=== PATIENT | male | born 1980 | race Caucasian/White ===

== ENCOUNTER 2020-12-04 15:38 | Observation (INO) ==
[2020-12-04] MEDS ORDERED: Ondansetron 4 MG/2 ML VIAL IVP PRN (18:38)
[2020-12-04] MEDS ORDERED: Naloxone 0.4 MG/ML INJ IVP PRN (18:38)
[2020-12-04] MEDS ORDERED: *HR* LORazepam 2 MG/ML VIAL IVP PRN (18:41)
[2020-12-04] MEDS: *HR* LORazepam 2 MG/ML VIAL IVP PRN ×2 (19:14→20:16)
[2020-12-04 19:23] LABS: Immature Granulocytes % 0.3 % (0-4); Mean Corpuscular Volume 92.6 fL (83.0-100.0); Red Cell Distribution Width 13.1 % (11.5-14.5)
[2020-12-04 19:25] LABS: Eosinophils % 0.3 %; Hematocrit 41.4 % (37.5-50.1); Hemoglobin 13.9 g/dL (12.9-16.9); Immature Platelets 10.5 % (1.1-6.1); Lymphocytes # 0.9 K/mcL (0.6-4.6); Lymphocytes % 27.8 %; Mean Corpuscular HGB Conc 33.6 g/dL (31.6-35.5); Mean Corpuscular Hemoglobin 31.1 pg (28.0-33.3); Mean Platelet Volume 10.8 fL (9.4-12.4); Monocytes # 0.3 K/mcL (0.0-1.3); Monocytes % 9.4 %; Neutrophils # 1.9 K/mcL (1.6-8.9); Red Blood Count 4.47 M/mcL (4.19-5.50); Segmented Neutrophils % 61.2 %; White Blood Count 3.1 K/mcL (4.3-11.1)
[2020-12-04 19:32] LABS: INR 1.1; Prothrombin Time 12.9 Seconds (9.4-12.1)
[2020-12-04 19:44] LABS: Alanine Aminotransferase 40 Units/L (7-52); Albumin 3.9 g/dL (3.5-5.7); Albumin/Globulin Ratio 1.4 (1.1-2.2); Alkaline Phosphatase 87 Units/L (34-104); Amylase 31 Units/L (29-103); Aspartate Amino Transferase 88 Units/L (13-39); BUN/Creatinine Ratio 6 (6-26); Bilirubin,Total 0.9 mg/dL (0.3-1.0); Blood Urea Nitrogen 4 mg/dL (6-20); Carbon Dioxide 28 mEq/L (23-29); Chloride 100 mEq/L (98-107); Ethanol 101 mg/dL (Less than 10); Globulin 2.8 g/dL (2.4-3.5); Glucose 101 mg/dL (70-105); Lipase 73 Units/L (11-82); Magnesium 1.6 mg/dL (1.6-2.6); Osmolality,Calculated 281 (280-300); Phosphorous 2.6 mg/dL (2.7-4.5); Potassium 3.3 mEq/L (3.5-5.1); Sodium 137 mEq/L (136-145); Total Protein 6.7 g/dL (6.4-8.9); eGFR For African Americans > 60 (> 60); eGFR For Non-African Americans > 60 (> 60)
[2020-12-04] MEDS: carvediloL 6.25 MG TABLET PO SCH (20:15)
[2020-12-04 20:44] LABS: Large Platelets Present (Not Present); Platelet Count 55 K/mcL (140-400); Platelet Estimate Decreased (Normal)
[2020-12-04] MEDS: Thiamine (B-1) 200 MG in 0.9 % Sodium Chloride 50 ML IVPB SCH (22:19)
[2020-12-05] MEDS: *HR* LORazepam 2 MG/ML VIAL IVP PRN ×6 (05:56→21:05)
[2020-12-05] MEDS: carvediloL 6.25 MG TABLET PO SCH (09:11)
[2020-12-05] MEDS: Thiamine (B-1) 200 MG in 0.9 % Sodium Chloride 50 ML IVPB SCH (14:42)
[2020-12-06] MEDS: Thiamine (B-1) 200 MG in 0.9 % Sodium Chloride 50 ML IVPB SCH (10:17)
[2020-12-06] MEDS: *HR* LORazepam 2 MG/ML VIAL IVP PRN (10:24)
[2020-12-06 11:44] VITALS: O2SAT 93
[2020-12-06 12:44] LABS: BUN/Creatinine Ratio 9 (6-26); Blood Urea Nitrogen 7 mg/dL (6-20); Calcium 9.7 mg/dL (8.6-10.3); Carbon Dioxide 27 mEq/L (23-29); Chloride 102 mEq/L (98-107); Glucose 111 mg/dL (70-105); Magnesium 2.1 mg/dL (1.6-2.6); Osmolality,Calculated 281 (280-300); Potassium 3.3 mEq/L (3.5-5.1); Sodium 136 mEq/L (136-145); eGFR For African Americans > 60 (> 60); eGFR For Non-African Americans > 60 (> 60)
[2020-12-06 14:04] LABS: Immature Granulocytes % 0.3 % (0-4)
[2020-12-06 14:06] LABS: Basophils % 0.6 %; Eosinophils # 0.1 K/mcL (0.0-0.6); Eosinophils % 1.7 %; Hematocrit 44.3 % (37.5-50.1); Immature Platelets 11.9 % (1.1-6.1); Lymphocytes # 0.8 K/mcL (0.6-4.6); Lymphocytes % 22.9 %; Mean Corpuscular HGB Conc 33.9 g/dL (31.6-35.5); Mean Corpuscular Hemoglobin 31.9 pg (28.0-33.3); Mean Corpuscular Volume 94.3 fL (83.0-100.0); Mean Platelet Volume 11.3 fL (9.4-12.4); Monocytes # 0.3 K/mcL (0.0-1.3); Monocytes % 8.8 %; Neutrophils # 2.4 K/mcL (1.6-8.9); Red Cell Distribution Width 13.2 % (11.5-14.5); Segmented Neutrophils % 65.7 %; White Blood Count 3.6 K/mcL (4.3-11.1)
[2020-12-06 14:07] LABS: Platelet Count 57 K/mcL (140-400)
[2020-12-06 16:25] VITALS: BP 131/89; PULSE 97; TEMP 98.5
== END 2020-12-06 18:10 | disposition home or self-care (01) ==
LOC: 2NENU → SUATTDRO 18:41
PROVIDERS: ADMIT Internal Medicine; ATTEND Internal Medicine

== ENCOUNTER 2020-12-08 05:04 | Inpatient (IN) ==
[2020-12-08 06:34] LABS: Amphetamine Screen,Urine Negative ng/mL (Cutoff=1000); Barbiturate Screen,Urine Negative ng/mL (Cutoff=200)
[2020-12-08 06:35] LABS: Benzodiazepines Screen,Urine Negative ng/mL (Cutoff=200); Cannabinoid Screen,Urine Negative ng/mL (Cutoff = 50); Cocaine Screen,Urine Negative ng/mL (Cutoff= 300); Opiate Screen,Urine Negative ng/mL (Cutoff=300); Phencyclidine Screen,Urine Negative ng/mL (Cutoff=25)
[2020-12-08] MEDS ORDERED: *HR* HYDROcodone/Acet 5/325 mg TABLET PO PRN (07:23)
[2020-12-08] MEDS ORDERED: Ondansetron 4 MG/2 ML VIAL IVP PRN (07:23)
[2020-12-08] MEDS ORDERED: Naloxone 0.4 MG/ML INJ IVP PRN (07:23)
[2020-12-08] MEDS ORDERED: *HR* LORazepam 2 MG/ML VIAL IVP PRN ×2 (07:25→07:27)
[2020-12-08 10:07] LABS: Basophils # 0.1 K/mcL (0.0-0.2); Basophils % 0.9 %; Eosinophils # 0.1 K/mcL (0.0-0.6); Eosinophils % 1.4 %; Hematocrit 44.9 % (37.5-50.1); Hemoglobin 15.2 g/dL (12.9-16.9); Immature Granulocytes % 0.2 % (0-4); Immature Platelets 4.1 % (1.1-6.1); Lymphocytes % 34.7 %; Mean Corpuscular HGB Conc 33.9 g/dL (31.6-35.5); Mean Corpuscular Hemoglobin 31.5 pg (28.0-33.3); Mean Corpuscular Volume 93.2 fL (83.0-100.0); Mean Platelet Volume 9.1 fL (9.4-12.4); Monocytes # 0.8 K/mcL (0.0-1.3); Monocytes % 13.7 %; Neutrophils # 2.9 K/mcL (1.6-8.9); Platelet Count 110 K/mcL (140-400); Red Blood Count 4.82 M/mcL (4.19-5.50); Red Cell Distribution Width 13.5 % (11.5-14.5); Segmented Neutrophils % 49.1 %; White Blood Count 5.8 K/mcL (4.3-11.1)
[2020-12-08 10:14] LABS: Activated Partial Thrombo Time 33.1 Seconds (26.0-36.0)
[2020-12-08 10:18] LABS: Amylase 38 Units/L (29-103); Ethanol 309 mg/dL (Less than 10); Lipase 124 Units/L (11-82)
[2020-12-08 10:20] LABS: Alanine Aminotransferase 53 Units/L (7-52); Albumin 4.2 g/dL (3.5-5.7); Albumin/Globulin Ratio 1.4 (1.1-2.2); Alkaline Phosphatase 99 Units/L (34-104); Aspartate Amino Transferase 91 Units/L (13-39); BUN/Creatinine Ratio 14 (6-26); Bilirubin,Total 0.6 mg/dL (0.3-1.0); Blood Urea Nitrogen 11 mg/dL (6-20); Calcium 8.1 mg/dL (8.6-10.3); Carbon Dioxide 23 mEq/L (23-29); Chloride 107 mEq/L (98-107); Glucose 93 mg/dL (70-105); Magnesium 2.2 mg/dL (1.6-2.6); Osmolality,Calculated 289 (280-300); Phosphorous 4.4 mg/dL (2.7-4.5); Potassium 3.6 mEq/L (3.5-5.1); Sodium 140 mEq/L (136-145); Total Protein 7.2 g/dL (6.4-8.9); eGFR For African Americans > 60 (> 60); eGFR For Non-African Americans > 60 (> 60)
[2020-12-08] MEDS ORDERED: Thiamine (B-1) 100 MG, Folic Acid 1 MG, MVI, adult with vitamin K 10 ML in 0.9 % Sodi... IVPB SCH (18:00)
[2020-12-08] MEDS: *HR* LORazepam 2 MG/ML VIAL IVP PRN (21:11)
[2020-12-09] MEDS: *HR* LORazepam 2 MG/ML VIAL IVP PRN (10:35)
[2020-12-10] MEDS: *HR* LORazepam 2 MG/ML VIAL IVP PRN (00:11)
[2020-12-10] MEDS ORDERED: Thiamine (B-1) 100 MG TABLET PO SCH (09:00)
[2020-12-10] MEDS ORDERED: Folic Acid 1 MG TABLET PO SCH (09:00)
[2020-12-10 11:14] VITALS: BP 139/91; PULSE 77; TEMP 98.5; O2SAT 95
== END 2020-12-10 12:36 | disposition home or self-care (01) | DRG 775 ==
LOC: EMEROOARM 05:04 → 2ANU 05:04 → SUATTDRO 06:34 → CDU 07:45 → 3BNU 13:31
PROVIDERS: ADMIT Internal Medicine; ATTEND Internal Medicine

== ENCOUNTER 2021-03-06 16:54 | Inpatient (IN) ==
[2021-03-06] MEDS ORDERED: *HR* Promethazine 25 MG/ML VIAL IM PRN (21:21)
[2021-03-06] MEDS ORDERED: Naloxone 0.4 MG/ML INJ IVP PRN (21:21)
[2021-03-06] MEDS ORDERED: Ondansetron 4 MG/2 ML VIAL IVP PRN (21:21)
[2021-03-06] MEDS ORDERED: Melatonin 3 MG TABLET PO PRN (21:21)
[2021-03-06] MEDS ORDERED: *HR* LORazepam 2 MG/ML VIAL IVP PRN ×2 (21:23)
[2021-03-06] MEDS: *HR* LORazepam 2 MG/ML VIAL IVP PRN (22:33)
[2021-03-06] MEDS: Ringers Solution, Lactated 1,000 ML IVC SCH (22:33)
[2021-03-07 01:52] LABS: INR 1.3
[2021-03-07 01:54] LABS: Alanine Aminotransferase 59 Units/L (7-52); Albumin 3.8 g/dL (3.5-5.7); Albumin/Globulin Ratio 1.2 (1.1-2.2); Alkaline Phosphatase 191 Units/L (34-104); Aspartate Amino Transferase 159 Units/L (13-39); BUN/Creatinine Ratio 11 (6-26); Bilirubin,Total 2.3 mg/dL (0.3-1.0); Blood Urea Nitrogen 6 mg/dL (6-20); Calcium 8.9 mg/dL (8.6-10.3); Carbon Dioxide 22 mEq/L (23-29); Chloride 101 mEq/L (98-107); Globulin 3.2 g/dL (2.4-3.5); Glucose 99 mg/dL (70-105); Magnesium 1.7 mg/dL (1.6-2.6); Osmolality,Calculated 274 (280-300); Potassium 3.5 mEq/L (3.5-5.1); Sodium 133 mEq/L (136-145); eGFR For African Americans > 60 (> 60); eGFR For Non-African Americans > 60 (> 60)
[2021-03-07] MEDS: Vitamin B Complex/Vit C/Vit E 1 EACH TABLET PO SCH (07:46)
[2021-03-07] MEDS: Folic Acid 1 MG TABLET PO SCH (07:46)
[2021-03-07] MEDS: Ringers Solution, Lactated 1,000 ML IVC SCH (07:46)
[2021-03-07] MEDS: Thiamine (B-1) 100 MG TABLET PO SCH (07:46)
[2021-03-07] MEDS: *HR* LORazepam 2 MG/ML VIAL IVP PRN (21:59)
[2021-03-08 02:37] LABS: Mean Platelet Volume 10.6 fL (9.4-12.4)
[2021-03-08 02:39] LABS: Hematocrit 45.3 % (37.5-50.1); Hemoglobin 15.2 g/dL (12.9-16.9); Immature Platelets 9.4 % (1.1-6.1); Mean Corpuscular HGB Conc 33.6 g/dL (31.6-35.5); Mean Corpuscular Hemoglobin 32.7 pg (28.0-33.3); Mean Corpuscular Volume 97.4 fL (83.0-100.0); Red Blood Count 4.65 M/mcL (4.19-5.50); Red Cell Distribution Width 14.8 % (11.5-14.5); White Blood Count 2.9 K/mcL (4.3-11.1)
[2021-03-08 02:56] LABS: BUN/Creatinine Ratio 15 (6-26); Blood Urea Nitrogen 8 mg/dL (6-20); Calcium 8.9 mg/dL (8.6-10.3); Carbon Dioxide 26 mEq/L (23-29); Chloride 100 mEq/L (98-107); Glucose 91 mg/dL (70-105); Osmolality,Calculated 274 (280-300); Potassium 3.4 mEq/L (3.5-5.1); Sodium 133 mEq/L (136-145); eGFR For African Americans > 60 (> 60); eGFR For Non-African Americans > 60 (> 60)
[2021-03-08] MEDS: Folic Acid 1 MG TABLET PO SCH (08:25)
[2021-03-08] MEDS: Thiamine (B-1) 100 MG TABLET PO SCH (08:25)
[2021-03-08] MEDS: Vitamin B Complex/Vit C/Vit E 1 EACH TABLET PO SCH (08:25)
[2021-03-08] MEDS: *HR* LORazepam 2 MG/ML VIAL IVP PRN ×2 (08:39→20:42)
[2021-03-08 15:29] VITALS: O2SAT 94
[2021-03-09 06:04] VITALS: PULSE 55; TEMP 98.4
[2021-03-09 07:52] VITALS: BP 123/79
[2021-03-09] MEDS: Thiamine (B-1) 100 MG TABLET PO SCH (08:35)
[2021-03-09] MEDS: Vitamin B Complex/Vit C/Vit E 1 EACH TABLET PO SCH (08:35)
[2021-03-09] MEDS: Folic Acid 1 MG TABLET PO SCH (08:35)
== END 2021-03-09 17:20 | disposition home or self-care (01) | DRG 775 ==
LOC: 2NENU → SUATTDRO 21:26
PROVIDERS: ADMIT Student in an Organized Health Care Education/Training Program; ATTEND Family Medicine

== ENCOUNTER 2021-06-07 20:21 | Inpatient (IN) ==
[2021-06-07] MEDS ORDERED: 0.9 % Sodium Chloride 1,000 ML IV ONE (21:22)
[2021-06-07] MEDS ORDERED: *HR* LORazepam 2 MG/ML VIAL IVP ONE (21:22)
[2021-06-07] MEDS ORDERED: Isovue-370 500 ML BOTTLE IVP ONE (21:22)
[2021-06-07 21:52] LABS: Basophils % 0.8 %; Eosinophils % 1.1 %; Hemoglobin 15.5 g/dL (12.9-16.9); Mean Corpuscular Hemoglobin 32.8 pg (28.0-33.3); Red Blood Count 4.73 M/mcL (4.19-5.50); Red Cell Distribution Width 12.5 % (11.5-14.5)
[2021-06-07 21:53] LABS: Hematocrit 43.3 % (37.5-50.1); Immature Platelets 12.1 % (1.1-6.1); Lymphocytes # 1.2 K/mcL (0.6-4.6); Lymphocytes % 31.1 %; Mean Corpuscular HGB Conc 35.8 g/dL (31.6-35.5); Mean Corpuscular Volume 91.5 fL (83.0-100.0); Mean Platelet Volume 10.9 fL (9.4-12.4); Monocytes # 0.4 K/mcL (0.0-1.3); Monocytes % 11.7 %; Neutrophils # 2.1 K/mcL (1.6-8.9); Segmented Neutrophils % 55.3 %; White Blood Count 3.8 K/mcL (4.3-11.1)
[2021-06-07 21:55] LABS: Platelet Count 35 K/mcL (140-400)
[2021-06-07 22:00] LABS: INR 1.2; Prothrombin Time 13.2 Seconds (9.4-12.1)
[2021-06-07 22:03] LABS: Activated Partial Thrombo Time 32.8 Seconds (26.0-36.0)
[2021-06-07 22:25] LABS: Alanine Aminotransferase 50 Units/L (7-52); Albumin 4.3 g/dL (3.5-5.7); Albumin/Globulin Ratio 1.3 (1.1-2.2); Alkaline Phosphatase 162 Units/L (34-104); Aspartate Amino Transferase 127 Units/L (13-39); BUN/Creatinine Ratio 7 (6-26); Bilirubin,Total 1.8 mg/dL (0.3-1.0); Blood Urea Nitrogen 5 mg/dL (6-20); Calcium 8.6 mg/dL (8.6-10.3); Carbon Dioxide 26 mEq/L (23-29); Globulin 3.2 g/dL (2.4-3.5); Glucose 75 mg/dL (70-105); Lipase 96 Units/L (11-82); Total Protein 7.5 g/dL (6.4-8.9); eGFR For African Americans > 60 (> 60); eGFR For Non-African Americans > 60 (> 60)
[2021-06-07 22:35] LABS: Chloride 91 mEq/L (98-107); Ethanol 62 mg/dL (Less than 10); Osmolality,Calculated 272 (280-300); Potassium 2.6 mEq/L (3.5-5.1); Sodium 133 mEq/L (136-145)
[2021-06-07] MEDS ORDERED: 0.9 % Sodium Chloride 250 ML ONE (23:23)
[2021-06-08] MEDS ORDERED: Melatonin 3 MG TABLET PO PRN (01:19)
[2021-06-08] MEDS ORDERED: Naloxone 0.4 MG/ML INJ IVP PRN (01:19)
[2021-06-08] MEDS ORDERED: Ondansetron 4 MG/2 ML VIAL IVP PRN (01:19)
[2021-06-08] MEDS ORDERED: *HR* LORazepam 2 MG/ML VIAL IVP PRN ×2 (01:20)
[2021-06-08] MEDS: *HR* LORazepam 2 MG/ML VIAL IVP PRN ×4 (03:47→19:29)
[2021-06-08 04:35] LABS: Basophils % 0.6 %; Eosinophils % 0.6 %; Immature Granulocytes % 0.3 % (0-4); Mean Platelet Volume 11.4 fL (9.4-12.4); Red Cell Distribution Width 12.8 % (11.5-14.5)
[2021-06-08 04:37] LABS: Hematocrit 39.9 % (37.5-50.1); Hemoglobin 14.1 g/dL (12.9-16.9); Immature Platelets 12.4 % (1.1-6.1); Lymphocytes # 0.7 K/mcL (0.6-4.6); Lymphocytes % 22.2 %; Mean Corpuscular HGB Conc 35.3 g/dL (31.6-35.5); Mean Corpuscular Hemoglobin 32.9 pg (28.0-33.3); Monocytes # 0.4 K/mcL (0.0-1.3); Monocytes % 10.5 %; Neutrophils # 2.2 K/mcL (1.6-8.9); Red Blood Count 4.29 M/mcL (4.19-5.50); Segmented Neutrophils % 65.8 %; White Blood Count 3.3 K/mcL (4.3-11.1)
[2021-06-08 04:39] LABS: Platelet Count 31 K/mcL (140-400)
[2021-06-08 04:50] LABS: INR 1.2; Prothrombin Time 13.7 Seconds (9.4-12.1)
[2021-06-08 04:52] LABS: Alanine Aminotransferase 43 Units/L (7-52); Albumin 3.9 g/dL (3.5-5.7); Albumin/Globulin Ratio 1.4 (1.1-2.2); Alkaline Phosphatase 156 Units/L (34-104); Aspartate Amino Transferase 108 Units/L (13-39); BUN/Creatinine Ratio 7 (6-26); Bilirubin,Total 2.2 mg/dL (0.3-1.0); Blood Urea Nitrogen 5 mg/dL (6-20); Calcium 8.2 mg/dL (8.6-10.3); Carbon Dioxide 22 mEq/L (23-29); Chloride 95 mEq/L (98-107); Globulin 2.8 g/dL (2.4-3.5); Glucose 96 mg/dL (70-105); Magnesium 1.6 mg/dL (1.6-2.6); Osmolality,Calculated 271 (280-300); Phosphorous 1.9 mg/dL (2.7-4.5); Potassium 3.3 mEq/L (3.5-5.1); Sodium 132 mEq/L (136-145); Total Protein 6.7 g/dL (6.4-8.9); eGFR For African Americans > 60 (> 60); eGFR For Non-African Americans > 60 (> 60)
[2021-06-08] MEDS ORDERED: Potassium Phosphate 44 MEQ in 0.9 % Sodium Chloride 250 ML IVPB ONE (06:00)
[2021-06-08] MEDS: Vitamin B Complex/Vit C/Vit E 1 EACH TABLET PO SCH (08:27)
[2021-06-08] MEDS: Thiamine (B-1) 100 MG TABLET PO SCH (08:27)
[2021-06-08] MEDS: Folic Acid 1 MG TABLET PO SCH (08:27)
[2021-06-09 04:55] LABS: Hemoglobin 14.1 g/dL (12.9-16.9); Mean Corpuscular Volume 95.6 fL (83.0-100.0); Mean Platelet Volume 11.3 fL (9.4-12.4)
[2021-06-09 04:57] LABS: Hematocrit 40.9 % (37.5-50.1); Immature Platelets 14.9 % (1.1-6.1); Mean Corpuscular HGB Conc 34.5 g/dL (31.6-35.5); Mean Corpuscular Hemoglobin 32.9 pg (28.0-33.3); Red Blood Count 4.28 M/mcL (4.19-5.50); Red Cell Distribution Width 13.4 % (11.5-14.5); White Blood Count 2.4 K/mcL (4.3-11.1)
[2021-06-09 05:07] LABS: BUN/Creatinine Ratio 9 (6-26); Blood Urea Nitrogen 6 mg/dL (6-20); Calcium 9.1 mg/dL (8.6-10.3); Carbon Dioxide 28 mEq/L (23-29); Chloride 102 mEq/L (98-107); Glucose 92 mg/dL (70-105); Osmolality,Calculated 281 (280-300); Potassium 2.9 mEq/L (3.5-5.1); Sodium 137 mEq/L (136-145); eGFR For African Americans > 60 (> 60); eGFR For Non-African Americans > 60 (> 60)
[2021-06-09] MEDS: Vitamin B Complex/Vit C/Vit E 1 EACH TABLET PO SCH (08:53)
[2021-06-09] MEDS: Thiamine (B-1) 100 MG TABLET PO SCH (08:53)
[2021-06-09] MEDS: Folic Acid 1 MG TABLET PO SCH (08:53)
[2021-06-09] MEDS: *HR* LORazepam 2 MG/ML VIAL IVP PRN (21:47)
[2021-06-10 06:33] VITALS: BP 116/64; PULSE 71; TEMP 98; O2SAT 98
[2021-06-10] MEDS: Folic Acid 1 MG TABLET PO SCH (09:12)
[2021-06-10] MEDS: Vitamin B Complex/Vit C/Vit E 1 EACH TABLET PO SCH (09:12)
[2021-06-10] MEDS: Thiamine (B-1) 100 MG TABLET PO SCH (09:12)
== END 2021-06-10 11:07 | disposition other institution (70) | DRG 775 ==
LOC: 3BNU 20:21 → EMEROOARM 20:21 → SUATTDRO 06-08 00:10 → 3BNU 06-08 00:47
PROVIDERS: ADMIT Internal Medicine; ATTEND Registered Nurse